=== PATIENT | female | born 1975 | race Caucasian/White ===

== ENCOUNTER 2016-04-17 20:28 | Inpatient (IN) | payer OTHER ==
[~2016-04-17] VITALS: Ht 168.9 cm; Wt 63.0 kg
[2016-04-17 22:25] LABS: HEMOGLOBIN 12.4 gm/dl (12.3-15.3); RED BLOOD COUNT 3.42 M/UL (4.00-5.10); WHITE BLOOD COUNT 7.1 K/UL (4.5-11.0)
[2016-04-17 22:37] LABS: BUN/CREATININE RATIO 20 (0-10)
[2016-04-18 07:17] LABS: HEMOGLOBIN 11.3 gm/dl (12.3-15.3); RED BLOOD COUNT 3.11 M/UL (4.00-5.10); WHITE BLOOD COUNT 5.9 K/UL (4.5-11.0)
[2016-04-18 07:36] LABS: BUN/CREATININE RATIO 20 (0-10)
[2016-04-18 10:56] LABS: BUN/CREATININE RATIO 20 (0-10)
[2016-04-19] MEDS ORDERED: BUPRENORPHIN-N1 EACH SL (05:51)
[2016-04-19 06:38] LABS: HEMOGLOBIN 10.8 gm/dl (12.3-15.3); RED BLOOD COUNT 3.05 M/UL (4.00-5.10); WHITE BLOOD COUNT 5.3 K/UL (4.5-11.0)
[2016-04-19 06:47] LABS: BUN/CREATININE RATIO 23 (0-10)
[2016-04-20 04:32] LABS: HEMOGLOBIN 11.3 gm/dl (12.3-15.3); RED BLOOD COUNT 3.11 M/UL (4.00-5.10); WHITE BLOOD COUNT 5.3 K/UL (4.5-11.0)
[2016-04-20 04:39] LABS: BUN/CREATININE RATIO 14 (0-10)
[2016-04-21 04:36] LABS: HEMOGLOBIN 11.2 gm/dl (12.3-15.3); RED BLOOD COUNT 3.12 M/UL (4.00-5.10)
[2016-04-21 04:49] LABS: BUN/CREATININE RATIO 13 (0-10)
[2016-04-22 04:35] LABS: RED BLOOD COUNT 3.05 M/UL (4.00-5.10); WHITE BLOOD COUNT 4.1 K/UL (4.5-11.0)
[2016-04-22 04:49] LABS: BUN/CREATININE RATIO 10 (0-10)
[2016-04-22 15:52] LABS: BUN/CREATININE RATIO 7 (0-10)
--- NOTE | 2016-04-22 19:16 | NUR ---
04/22/[address] DUARTE ON [employer].
[2016-04-23 06:12] LABS: BUN/CREATININE RATIO 7 (0-10)
[2016-04-24 05:53] LABS: HEMOGLOBIN 11.4 gm/dl (12.3-15.3); RED BLOOD COUNT 3.12 M/UL (4.00-5.10); WHITE BLOOD COUNT 4.6 K/UL (4.5-11.0)
[2016-04-24 06:05] LABS: BUN/CREATININE RATIO 13 (0-10)
[2016-04-24] MEDS ORDERED: LIBRIUM CAP 2525 MG PO (12:08)
[2016-04-24] MEDS ORDERED: THERAGRAN TAB1 EA PO (12:09)
[2016-04-24] MEDS ORDERED: PROTONIX40 MG PO (12:10)
[2016-04-24] MEDS ORDERED: HABITROL 14 MG P1 EA TD (12:10)
[2016-04-24] MEDS ORDERED: LORTAB 5-325 M1 EACH PO (12:12)
[2016-04-24] MEDS ORDERED: ZOFRAN4 MG PO (12:13)
[2016-04-24] MEDS ORDERED: VITAMIN D2000 UNI1 PO (12:14)
--- NOTE | 2016-04-24 18:05 | NUR ---
I COMPLETED THE DISCHARGE EDUCATION WITH THE PATIENT AND HER FAMILY. I GAVE THE PATIENT THE PRESCRIPTIONS AND WENT OVER THE EDUCATION WITH THEM. WE WERE WAITING FOR A WALKER TO BE DELIVERED TO THE HOSPITAL FROM [facility]. WHEN THE WALKER GOT HERE AT ABOUT 1745, WE TOOK THE PATIENT'S DISCHARGE VITALS AND SHE HAD A FEVER OF 100.9. I NOTIFIED BECAUSE HE WAS ON THE FLOOR AND HE STATED TO HOLD HER DISCHARGE. I SPOKE TO THE FAMILY MEMBER AND HE STATED THAT ALL THE SCRIPTS HAD BEEN DROPPED OFF AT THE PHARMACY EXCEPT THE PAIN MEDICATION SCRIPT. HE BROUGHT THAT SCRIPT BACK AND WE PUT IT BACK IN HER CHART.
[2016-04-25 05:40] LABS: RED BLOOD COUNT 3.02 M/UL (4.00-5.10)
[2016-04-25 05:41] LABS: WHITE BLOOD COUNT 7.9 K/UL (4.5-11.0)
[2016-04-25 05:52] LABS: BUN/CREATININE RATIO 18 (0-10)
[2016-04-26 08:01] LABS: BUN/CREATININE RATIO 30 (0-10)
[2016-04-26 08:15] LABS: HEMOGLOBIN 10.2 gm/dl (12.3-15.3); RED BLOOD COUNT 2.84 M/UL (4.00-5.10); WHITE BLOOD COUNT 7.5 K/UL (4.5-11.0)
[2016-04-27 06:22] LABS: RED BLOOD COUNT 2.76 M/UL (4.00-5.10); WHITE BLOOD COUNT 6.1 K/UL (4.5-11.0)
[2016-04-27 06:41] LABS: BUN/CREATININE RATIO 17 (0-10)
== END 2016-04-27 15:27 | disposition home health service (06) | DRG 433 ==
LOC: ER1 20:28 → MED SURG 4 04-18 02:30 → ZEROF 04-18 02:30 → MED SURG 4 04-18 09:18 → M/S 04-23 18:12
PROVIDERS: Emergency Medicine; Internal Medicine; Internal Medicine Infectious Disease; Student in an Organized Health Care Education/Training Program; ADMIT Hospitalist
DX: K70.10 Alcoholic hepatitis without ascites (principal); E44.0 Moderate protein-calorie malnutrition; D61.818 Other pancytopenia; K76.6 Portal hypertension; F10.231 Alcohol dependence with withdrawal delirium; E86.0 Dehydration; E87.6 Hypokalemia; K70.30 Alcoholic cirrhosis of liver without ascites; A08.4 Viral intestinal infection, unspecified; K31.84 Gastroparesis; E83.42 Hypomagnesemia; E83.39 Other disorders of phosphorus metabolism; E83.51 Hypocalcemia; K82.9 Disease of gallbladder, unspecified; F17.210 Nicotine dependence, cigarettes, uncomplicated; F11.21 Opioid dependence, in remission; Z68.22 Body mass index [BMI] 22.0-22.9, adult; Z81.1 Family history of alcohol abuse and dependence
CPT/HCPCS: 36415; 71010; 76705; 80048; 80053; 80074; 80076; 81001; 82140; 82607; 82746; 83540; 83605; 83690; 83735; 84100; 84132; 84443; 84703; 85025; 85027; 85045; 85610; 85730; 87040; 87045; 87046; 87086; 87390; 89055; 96361; 96374; 96375; 96376; 99285; C9113; G0480; J1335; J1956; J2060; J2270; J2405; J2543; J3411; J3475; J7030; J7050; J7120; Q0162; Q9962

== ENCOUNTER 2016-05-04 16:39 | Emergency (ER) | payer OTHER ==
[~2016-05-04 16:39] MED LIST: BUPRENORPHIN-N1 EACH SL; HABITROL 14 MG P1 EA TD; LIBRIUM CAP 2525 MG PO; LORTAB 5-325 M1 EACH PO; PROTONIX40 MG PO; THERAGRAN TAB1 EA PO; VITAMIN D2000 UNI1 PO; ZOFRAN4 MG PO
== END 2016-05-05 00:49 | disposition left against medical advice (07) ==
LOC: ER1 16:39
DX: Z53.21 Procedure and treatment not carried out due to patient leaving prior to being seen by health care provider (principal)

== ENCOUNTER 2016-05-05 10:08 | Emergency (ER) | payer OTHER ==
[2016-05-05 11:49] LABS: RED BLOOD COUNT 2.99 M/UL (4.00-5.10); WHITE BLOOD COUNT 10.7 K/UL (4.5-11.0)
[2016-05-05 12:13] LABS: BUN/CREATININE RATIO 8 (0-10)
== END 2016-05-05 16:08 | disposition home or self-care (01) ==
LOC: ER1 10:08
PROVIDERS: Physician Assistant
DX: M79.605 Pain in left leg (principal); M79.604 Pain in right leg; R60.0 Localized edema; K70.10 Alcoholic hepatitis without ascites; F17.210 Nicotine dependence, cigarettes, uncomplicated; Z79.899 Other long term (current) drug therapy
CPT/HCPCS: 36415; 71020; 80053; 81001; 82150; 82550; 82553; 83690; 83874; 83880; 84484; 84703; 85025; 85379; 93970; 96374; 96375; 99284; J1885; J1940; J2270; J2405

== ENCOUNTER 2016-05-15 10:27 | Emergency (ER) | payer OTHER ==
[2016-05-15 11:21] LABS: HEMOGLOBIN 10.5 gm/dl (12.3-15.3); RED BLOOD COUNT 2.88 M/UL (4.00-5.10); WHITE BLOOD COUNT 5.1 K/UL (4.5-11.0)
[2016-05-15 11:33] LABS: BUN/CREATININE RATIO 20 (0-10)
== END 2016-05-15 13:30 | disposition home or self-care (01) ==
LOC: ER1 10:27
PROVIDERS: Physician Assistant
DX: R60.0 Localized edema (principal); F17.210 Nicotine dependence, cigarettes, uncomplicated
CPT/HCPCS: 36415; 71010; 80053; 81001; 82150; 83690; 83880; 84703; 85025; 96374; 96375; 99283; J2270; J2405

== ENCOUNTER → 2016-05-21 | Outpatient (CLI) | payer OTHER | LOC: CT 08:30 | DX: R51 Headache (principal) | CPT/HCPCS: 70470; J7050; Q9966 ==

== ENCOUNTER → 2016-07-06 | Outpatient (CLI) | payer OTHER | LOC: MAMO 10:00 | DX: Z12.31 Encounter for screening mammogram for malignant neoplasm of breast (principal); I70.90 Unspecified atherosclerosis | CPT/HCPCS: G0202 ==